=== PATIENT | female | born 1975 | race Asian ===

== ENCOUNTER 2017-12-21 00:24 | Emergency (ER) | payer MEDICAID, OTHER ==
[~2017-12-21] VITALS: Ht 152.4 cm; Wt 69.3 kg
[~2017-12-21 00:24] MED LIST: NORE0.352 PO
[2017-12-21] MEDS ORDERED: LISI2.5T PO (01:21)
[2017-12-21] MEDS ORDERED: METF500T4 PO (01:21)
[2017-12-21 01:31] LABS: HCG UR SG 1.008 (1.003-1.030); MICROSCOPIC NOT IND
[2017-12-21 01:42] LABS: ALBUMIN 4.1 g/dL (3.4-5.0); ANION GAP 7 mmol/L (5-15); CALCIUM 8.7 mg/dL (8.5-10.1); CHLORIDE 103 mmol/L (98-107); CREATININE 0.57 mg/dL (0.55-1.02)
[2017-12-21 01:49] LABS: HEMOGLOBIN A1C 6.3 % (4.2-6.3)
[2017-12-21 01:58] LABS: CULTURE INDICATED? NO
[2017-12-21 02:07] LABS: BASOPHILS # (AUTO) 0.03 x10^3/uL (0-0.1); BASOPHILS % (AUTO) 0 % (0-1); EOSINOPHILS # (AUTO) 0.05 x10^3/uL (0-0.4); EOSINOPHILS % (AUTO) 1 % (1-7); LYMPHOCYTES # (AUTO) 1.59 x10^3/uL (1-3.4); LYMPHOCYTES % (AUTO) 23 % (22-44); MD NO; MEAN CORPUSCULAR HEMOGLOBIN 27.8 pg (27.0-34.8); MEAN CORPUSCULAR HGB CONC 32.4 g/dL (32.4-35.8); MEAN CORPUSCULAR VOLUME 85.8 fL (80-100); MEAN PLATELET VOLUME 8.3 fL (7.4-10.4); MONOCYTES # (AUTO) 0.46 x10^3/uL (0.2-0.8); MONOCYTES % (AUTO) 7 % (2-9); NEUTROPHILS # (AUTO) 4.73 x10^3/uL (1.8-6.8); NEUTROPHILS % (AUTO) 69 % (42-75); PLATELET COUNT 624 x10^3/uL (130-400); RED BLOOD COUNT 3.62 x10^6/uL (3.82-5.3); RED CELL DISTRIBUTION WIDTH 15.4 % (9.6-15.2)
[2017-12-21 02:23] VITALS: BP 103/56
== END 2017-12-21 02:24 | disposition home or self-care (01) ==
LOC: ED 02:18
DX: R35.0 Frequency of micturition (principal); E11.65 Type 2 diabetes mellitus with hyperglycemia; I10 Essential (primary) hypertension
CPT/HCPCS: 36415; 80048; 81003; 81025; 82040; 83036; 85025; 99284